=== PATIENT | female | born 1970 | race Caucasian/White ===

== ENCOUNTER 2016-08-20 12:20 | Emergency (ER) | payer OTHER ==
--- NOTE | 2016-08-20 14:45 | ED ORDER SUMMARY ---
..... Patient: MICAH QUINN OrderSheet [facility] VisitID: [id number] [address] [place] [address] 46y, F Registration Date/Time: 08/20/2016 ORDER SHEET Weight: 190.5 kg Allergies: None GENERAL ORDERS: US Venous Left Urgent (13:39 08/20/2016 EKoroleva P.A.-C) (Ack 13:41 MATEOoeremily) (14:39 DMaziarka R.N.) CBC w Diff Urgent (13:39 08/20/2016 EKoroleva P.A.-C) (Ack 13:41 MATEOoekemal) (13:48 MATEOoeremily) POC Glucose (14:39 08/20/2016 EKoroleva P.A.-C) (14:39 DMaziarka R.N.) MEDICATION ORDERS: Keflex PO 500 mg (NOW) (14:38 08/20/2016 EKoroleva P.A.-C) (Ack 14:39 DMaziarka R.N.) (14:44 DMaziarka R.N.) IV FLUIDS: ORDER SHEET NOTES: [Electronically signed by Skyla Mcgrath R.N. (14:49 08/20/2016)] [Electronically signed by Rhianna Woodruff P.A.-C (14:51 08/20/2016)] [Electronically locked/signed by Skyla Mcgrath R.N. (14:49 08/20/2016)]
--- NOTE | 2016-08-20 14:45 | ED CLINICAL REPORT ---
Clinical Report - Physicians/Mid Levels [facility] [address] [place] [address] 08/20/2016 12:22 Patient: MICAH QUINN Time Seen: 14:40 Aug 20 2016. Arrived- By private vehicle. Historian- patient. HISTORY OF PRESENT ILLNESS Chief Complaint: Injury to left leg and left knee. 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 Patient is experiencing mild pain. Patient denies injury to the head or neck. (Sutained a blow to knee about 5 days prior, has been ambulatory, seen at clinic with xr, and reported no signs of fx, not improving, not worsening. No h/o dvt. Denies sob. Denies any fevers/ chills. Has been elevating/ icing.). REVIEW OF SYSTEMS The patient complains of pain on weight bearing. All systems otherwise negative, except as recorded above. PAST HISTORY The patient has not had a prior injury to the same area. Tetanus immunization status is up-to-date. Problems: Hyperlipidemia. Diabetes Mellitus. Hypertension. Sciatica. Medications: Lisinopril Oral. Simvastatin Oral. MetFORMIN HCl Oral. Hydrochlorothiazide Oral. Allergies: None. SOCIAL HISTORY Never smoker. No alcohol use. ADDITIONAL NOTES The nursing notes have been reviewed. PHYSICAL EXAM Vital Signs: 08/20/2016 13:16 BP: 162/95. HR: 106. RR: 24. O2 saturation: 99%. Temp: 98.5 F. Appearance: Alert. No acute distress. Head: Head atraumatic. ENT: Ears normal. Neck: Normal inspection. CVS: Normal heart rate and rhythm. Respiratory: No respiratory distress. Breath sounds normal. No decreased air movement or chest wall injury. Abdomen: Obese. Skin: Skin warm. Normal skin color. (distal small pink warmth/ erythema, no abrasions, no signs of mass.). Extremities: Left thigh. No tenderness or swelling. Left knee: mild tenderness located in the distal femur. No ecchymosis or puncture wound. Left leg: mild tenderness and swelling and medium sized ecchymosis located in the anterior aspect of upper leg. Neurovascular intact distally. No limitation of weight bearing. Left ankle. (full passive rom). Left foot. (good sensation and distal pulse). Neuro, Vascular and Tendons: Vascular status intact. Motor intact. PROGRESS AND PROCEDURES Course of Care: Records reviewed, neg tib/fib from [facility] neg for dvt, signs of large hematoma. Pt with no pain out of proportion, with no signs of pain with passive rom, and no concern at this time for acute compartment syndrome. Distal pink erythema/ warmth, and given pt dm will tx for cellulitis. No new injury, and pt ambulatory. Stable POC glucose 76. 08/20/2016 14:45 BP: 138/84. HR: 88. RR: 24. O2 saturation: 98%. Patient is stable. Symptoms better. Patient/family counseled. Disposition: Discharged. CLINICAL IMPRESSION Contusion to the left knee and left lower leg. Hematoma to the left lower leg. Type 2 diabetes. Essential hypertension. INSTRUCTIONS Apply ice. Elevate affected areas above chest level. No strenuous activity. You may walk and bear weight as tolerated. (Elevate ICE ICE ICE Close follow up with your DR in 4-5 days). Prescription Medications: Cephalexin 500 mg: take 1 capsule orally every 8 hours for 10 days. No refill. Motrin 800 mg tablets: take 1 tablet orally every 8 hours for 5 days, as needed for pain. Dispense ten (10). No refill. Substitution is permissible. (Electronically signed by Rhianna Woodruff P.A.-C 08/20/2016 14:51)
--- NOTE | 2016-08-20 14:45 | ED NURSING NOTES ---
Clinical Report - Nurses [facility] [address] [place] [address] 08/20/2016 12:22 Patient: MICAH QUINN TRIAGE Triage time 13:16. Acuity: LEVEL 4. Chief Complaint: INJURY TO THE LEFT LEG. Alert. No acute distress. --13:20 Skyla Mcgrath R.N. 13:16 08/20/16. BP: 162/95. HR: 106. RR: 24. O2 saturation: 99%. Temp: 98.5 F. Pain level now 12/27. --13:20 Skyla Mcgrath R.N. Weight: 190.5 kg. Height/Length: 67 inches Measured. BMI: 65.8. --13:18 Skyla Mcgrath R.N. Medications Hydrochlorothiazide Oral. --13:18 Skyla Mcgrath R.N. MetFORMIN HCl Oral. --13:18 Skyla Mcgrath R.N. Simvastatin Oral. --13:19 Skyla Mgcrath R.N. Lisinopril Oral. --13:19 Skyla Mcgrath R.N. Allergies None. --13:19 Skyla Mcgrath R.N. History Arrived by private vehicle, and accompanied by friend. Primary physician (none). Treatment BRANCH CHIEF: (RICE). PAST MEDICAL HX: Tetanus status: up-to-date. SOCIAL HX: Never smoker. No alcohol use or drug use. --13:20 Skyla Mcgrath R.N. ( Pt was seen last week by the clinic and no fracture identified. Did not do a follow up just came here as she isn't better). --13:22 Skyla Mcgrath R.N. PROBLEMS: Hyperlipidemia. Diabetes Mellitus. Hypertension. Sciatica. --13:20 Skyla Mcgrath R.N. PHYSICAL ASSESSMENT Ambulatory to room. GENERAL / NEURO / PSYCH: Oriented X 4. Alert. Appears in no acute distress. EXTREMITIES: Left leg: tenderness and ecchymosis. SKIN: Skin is warm and dry. --13:21 Skyal Mcgrath R.N. NURSING PROGRESS NOTES Two patient identifiers checked. --13:21 Skyla Mcgrath R.N. 14:44 08/20/2016 Keflex (Cephalexin) PO 500 mg given. Allergies verified and confirmed 5 rights. --14:44 Skyla Mcgrath R.N. DISPOSITION / DISCHARGE Departure time: 14:48. Condition at departure: unchanged. No learning barriers present. Discharge instructions provided and reviewed with the patient. Patient verbalized understanding. Written instructions provided in Estonian. The patient was discharged home. She left the Emergency Department ambulatory and via private vehicle. Patient driving. --14:48 Skyla Mcgrath R.N. 14:45 08/20/16. BP: 138/84. HR: 88. RR: 24. O2 saturation: 98%. Pain level now 4/10. --14:48 Skyla Mcgrath R.N. Locked/Released at 08/20/2016 14:49 by Skyla Mcgrath R.N.
--- NOTE | 2016-08-20 14:45 | ED ORDER SUMMARY ---
..... Patient: MICAH QUINN OrderSheet [facility] VisitID: [id number] [address] [place] [address] 46y, F Registration Date/Time: 08/20/2016 ORDER SHEET Weight: 190.5 kg Allergies: None GENERAL ORDERS: US Venous Left Urgent (13:39 08/20/2016 EKoroleva P.A.-C) (Ack 13:41 MATEOoeremily) (14:39 DMaziarka R.N.) CBC w Diff Urgent (13:39 08/20/2016 EKoroleva P.A.-C) (Ack 13:41 MATEOoekemal) (13:48 MATEOoeremily) POC Glucose (14:39 08/20/2016 EKoroleva P.A.-C) (14:39 DMaziarka R.N.) MEDICATION ORDERS: Keflex PO 500 mg (NOW) (14:38 08/20/2016 EKoroleva P.A.-C) (Ack 14:39 DMaziarka R.N.) (14:44 DMaziarka R.N.) IV FLUIDS: ORDER SHEET NOTES: [Electronically signed by Skyla Mcgrath R.N. (14:49 08/20/2016)] [Electronically signed by Rhianna Woodruff P.A.-C (14:51 08/20/2016)] [Electronically locked/signed by Skyla Mcgrath R.N. (14:49 08/20/2016)]
--- NOTE | 2016-08-20 14:45 | ED CLINICAL REPORT ---
Clinical Report - Physicians/Mid Levels Located [facility] [address] [place] [address] 08/20/2016 12:22 Patient: MICAH QUINN Time Seen: 14:40 Aug 20 2016. Arrived- By private vehicle. Historian- patient. HISTORY OF PRESENT ILLNESS Chief Complaint: Injury to left leg and left knee. 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 Patient is experiencing mild pain. Patient denies injury to the head or neck. (Sutained a blow to knee about 5 days prior, has been ambulatory, seen at clinic with xr, and reported no signs of fx, not improving, not worsening. No h/o dvt. Denies sob. Denies any fevers/ chills. Has been elevating/ icing.). REVIEW OF SYSTEMS The patient complains of pain on weight bearing. All systems otherwise negative, except as recorded above. PAST HISTORY The patient has not had a prior injury to the same area. Tetanus immunization status is up-to-date. Problems: Hyperlipidemia. Diabetes Mellitus. Hypertension. Sciatica. Medications: Lisinopril Oral. Simvastatin Oral. MetFORMIN HCl Oral. Hydrochlorothiazide Oral. Allergies: None. SOCIAL HISTORY Never smoker. No alcohol use. ADDITIONAL NOTES The nursing notes have been reviewed. PHYSICAL EXAM Vital Signs: 08/20/2016 13:16 BP: 162/95. HR: 106. RR: 24. O2 saturation: 99%. Temp: 98.5 F. Appearance: Alert. No acute distress. Head: Head atraumatic. ENT: Ears normal. Neck: Normal inspection. CVS: Normal heart rate and rhythm. Respiratory: No respiratory distress. Breath sounds normal. No decreased air movement or chest wall injury. Abdomen: Obese. Skin: Skin warm. Normal skin color. (distal small pink warmth/ erythema, no abrasions, no signs of mass.). Extremities: Left thigh. No tenderness or swelling. Left knee: mild tenderness located in the distal femur. No ecchymosis or puncture wound. Left leg: mild tenderness and swelling and medium sized ecchymosis located in the anterior aspect of upper leg. Neurovascular intact distally. No limitation of weight bearing. Left ankle. (full passive rom). Left foot. (good sensation and distal pulse). Neuro, Vascular and Tendons: Vascular status intact. Motor intact. PROGRESS AND PROCEDURES Course of Care: Records reviewed, neg tib/fib from [facility] neg for dvt, signs of large hematoma. Pt with no pain out of proportion, with no signs of pain with passive rom, and no concern at this time for acute compartment syndrome. Distal pink erythema/ warmth, and given pt dm will tx for cellulitis. No new injury, and pt ambulatory. Stable POC glucose 76. 08/20/2016 14:45 BP: 138/84. HR: 88. RR: 24. O2 saturation: 98%. Patient is stable. Symptoms better. Patient/family counseled. Disposition: Discharged. CLINICAL IMPRESSION Contusion to the left knee and left lower leg. Hematoma to the left lower leg. Type 2 diabetes. Essential hypertension. INSTRUCTIONS Apply ice. Elevate affected areas above chest level. No strenuous activity. You may walk and bear weight as tolerated. (Elevate ICE ICE ICE Close follow up with your DR in 4-5 days). Prescription Medications: Cephalexin 500 mg: take 1 capsule orally every 8 hours for 10 days. No refill. Motrin 800 mg tablets: take 1 tablet orally every 8 hours for 5 days, as needed for pain. Dispense ten (10). No refill. Substitution is permissible. (Electronically signed by Rhianna Woodruff P.A.-C 08/20/2016 14:51)
--- NOTE | 2016-08-20 14:45 | ED NURSING NOTES ---
Clinical Report - Nurses [facility] [address] [place] [address] 08/20/2016 12:22 Patient: MICAH QUINN TRIAGE Triage time 13:16. Acuity: LEVEL 4. Chief Complaint: INJURY TO THE LEFT LEG. Alert. No acute distress. --13:20 Skyla Mcgrath R.N. 13:16 08/20/16. BP: 162/95. HR: 106. RR: 24. O2 saturation: 99%. Temp: 98.5 F. Pain level now 12/27. --13:20 Skyla Mcgrath R.N. Weight: 190.5 kg. Height/Length: 67 inches Measured. BMI: 65.8. --13:18 Skyla Mcgrath R.N. Medications Hydrochlorothiazide Oral. --13:18 Skyla Mcgrath R.N. MetFORMIN HCl Oral. --13:18 Skyla Mcgrath R.N. Simvastatin Oral. --13:19 Skyla Mcgrath R.N. Lisinopril Oral. --13:19 Skyla Mcgrath R.N. Allergies None. --13:19 Skyla Mcgrath R.N. History Arrived by private vehicle, and accompanied by friend. Primary physician (none). Treatment AIR DEFENSE ARTILLERY OFFICER: (RICE). PAST MEDICAL HX: Tetanus status: up-to-date. SOCIAL HX: Never smoker. No alcohol use or drug use. --13:20 Skyla Mcgrath R.N. ( Pt was seen last week by the clinic and no fracture identified. Did not do a follow up just came here as she isn't better). --13:22 Skyla Mcgrath R.N. PROBLEMS: Hyperlipidemia. Diabetes Mellitus. Hypertension. Sciatica. --13:20 Skyla Mcgrath R.N. PHYSICAL ASSESSMENT Ambulatory to room. GENERAL / NEURO / PSYCH: Oriented X 4. Alert. Appears in no acute distress. EXTREMITIES: Left leg: tenderness and ecchymosis. SKIN: Skin is warm and dry. --13:21 kSyla Mcgrath R.N. NURSING PROGRESS NOTES Two patient identifiers checked. --13:21 Skyla Mcgrath R.N. 14:44 08/20/2016 Keflex (Cephalexin) PO 500 mg given. Allergies verified and confirmed 5 rights. --14:44 Skyla Mcgrath R.N. DISPOSITION / DISCHARGE Departure time: 14:48. Condition at departure: unchanged. No learning barriers present. Discharge instructions provided and reviewed with the patient. Patient verbalized understanding. Written instructions provided in Yi. The patient was discharged home. She left the Emergency Department ambulatory and via private vehicle. Patient driving. --14:48 Skyla Mcgrath R.N. 14:45 08/20/16. BP: 138/84. HR: 88. RR: 24. O2 saturation: 98%. Pain level now 4/10. --14:48 Skyla Mcgrath R.N. Locked/Released at 08/20/2016 14:49 by Skyla Mcgrath R.N.
--- NOTE | 2016-08-20 14:51 | ED MED RECONCILIATION SUMMARY ---
Patient: MICAH QUINN Medication Reconciliation Report [facility] VisitID: [id number] [address] [place] [address] 46y, F Registration Date/Time: 08/20/2016 Weight: 190.5 kg Height/Length: 67 in. BMI: 65.8 ALLERGIES: None The patient's Home Medications are listed below: THE FOLLOWING MEDICATIONS NEED TO BE RECONCILED: Hydrochlorothiazide Oral Lisinopril Oral MetFORMIN HCl Oral Simvastatin Oral The source(s) of the original Home Medication information: Not obtained. The following Medications were given to the patient in the Emergency Department: Keflex [PO] PO 500 mg, administered: 08/20/2016 2:44:00 PM The following Medications were prescribed to the patient: Cephalexin 500 mg: take 1 capsule orally every 8 hours for 10 days. No refill. -- Rhianna Woodruff, P.A.-Michi Motrin 800 mg tablets: take 1 tablet orally every 8 hours for 5 days, as needed for pain. Dispense ten (10). No refill. Substitution is permissible. -- Rhianna Woodruff, P.A.-C
--- NOTE | 2016-08-20 14:51 | DIAGNOSTIC IMAGING REPORT ---
PROCEDURE: US VENOUS - LEFT EXT INDICATION: SWELLING TECHNIQUE: Duplex sonography of the deep venous system in the left lower extremity was performed. Compression and augmentation techniques were used. COMPARISON: None. FINDINGS: Each interrogated segment of deep vein from the common femoral vein into the calf veins demonstrates normal compressibility, augmentation and/or color Doppler flow without filling defect. The deep subcutaneous tissues in the area of bruise, there is an ill-defined, irregular fluid collection measuring 3.6 x 4.0 x 0.9 cm. No vascularity to or within this region. IMPRESSION: 1. No deep venous thrombosis in the left lower extremity. 2. Findings suggestive of deep anterior soft tissue hematoma.
--- NOTE | 2016-08-20 14:51 | ED MAR SUMMARY ---
..... Medication Administration Record [facility] [address] [place] [address] Patient: MICAH QUINN Visit ID: [id number] 46y, F Weight: 190.5 kg Height/Length: 67 in BMI: 65.8 ALLERGIES: None Given 14:44 08/20/2016 Skyla Mcgrath R.N. Medication Administered: KEFLEX [PO] (CEPHALEXIN), Dose: 500 mg PO. Medication Ordered: Keflex PO 500 mg (NOW).
--- NOTE | 2016-08-20 14:51 | ED MAR SUMMARY ---
..... Medication Administration Record [facility] [address] [place] [address] Patient: MICAH QUINN Visit ID: [id number] 46y, F Weight: 190.5 kg Height/Length: 67 in BMI: 65.8 ALLERGIES: None Given 14:44 08/20/2016 Skyla Mcgrath R.N. Medication Administered: KEFLEX [PO] (CEPHALEXIN), Dose: 500 mg PO. Medication Ordered: Keflex PO 500 mg (NOW).
--- NOTE | 2016-08-20 14:51 | ED DISCHARGE INSTRUCTIONS ---
Patient: MICAH QUINN General Instructions [facility] VisitID: [id number] [place] [address] 46y, F Registration Date/Time: 08/20/2016 Contusion to the left knee and left lower leg. Hematoma to the left lower leg. Type 2 diabetes. Essential hypertension. INSTRUCTIONS Apply ice. Elevate affected areas above chest level. No strenuous activity. You may walk and bear weight as tolerated. (Elevate ICE ICE ICE Close follow up with your DR in 4-5 days). Prescription Medications: Cephalexin 500 mg: take 1 capsule orally every 8 hours for 10 days. No refill. Motrin 800 mg tablets: take 1 tablet orally every 8 hours for 5 days, as needed for pain. Dispense ten (10). No refill. Substitution is permissible. ADDITIONAL INFORMATION Hematoma A hematoma is caused by an injury with damage to small blood vessels. This causes blood to leak into the tissues. Blood forms a pocket under the skin that swells and looks like a purplish patch. Gradually the blood in the hematoma is absorbed back into the body. The swelling and pain of the hematoma will go away. This takes from one to four weeks, depending on the size of the hematoma. The skin over the hematoma may turn bluish then brown and yellow as the blood is dissolved and absorbed. Home Care: Limit motion of the joints near the hematoma. If the hematoma is large and painful, you should avoid sports and other vigorous physical activity until the swelling and pain goes away. Apply an ice pack (ice cubes in a plastic bag, wrapped in a towel) over the injured area for 20 minutes every 1-2 hours the first day. You should continue with ice packs 3-4 times a day for the next two days. Continue the use of ice packs for relief of pain and swelling as needed. You may use acetaminophen (Tylenol) or ibuprofen (Motrin, Advil) to control pain, unless another pain medicine was prescribed. [ NOTE : If you have chronic liver or kidney disease or ever had a stomach ulcer or GI bleeding, talk with your doctor before using these medicines.] Follow Up with your doctor or as advised by our staff. [ NOTE: A radiologist will review any X-rays that were taken. We will notify you of any new findings that may affect your care.] Get Prompt Medical Attention if any of the following occur: Redness around the hematoma Increase in pain or warmth in the hematoma Increase in size of the hematoma Fever of 100.4F (38C) or higher, or as directed by your healthcare provider If the hematoma is on the arm or leg, watch for: Increased swelling or pain in the extremity Numbness or tingling or blue color of the hand or foot Contusion,Soft Tissue You have a CONTUSION, which is a bruise with swelling and some bleeding under the skin. There are no broken bones. This injury takes a few days to a few weeks to heal. Home Care: 1) Keep the injured part elevated to reduce pain and swelling. This is especially important during the first 48 hours. 2) Make an ice pack (ice cubes in a plastic bag, wrapped in a towel) and apply for 20 minutes every 1-2 hours the first day. Continue this 3-4 times a day until the pain and swelling goes away. 3) You may use acetaminophen (Tylenol) or ibuprofen (Motrin, Advil) to control pain, unless another pain medicine was prescribed. [ NOTE : If you have chronic liver or kidney disease or ever had a stomach ulcer or GI bleeding, talk with your doctor before using these medicines.] Follow Up with your doctor or this facility if you are not improving within the next THREE days. [NOTE: If X-rays were taken, they will be reviewed by a radiologist. You will be notified of any new findings that may affect your care.] Get Prompt Medical Attention if any of the following occur: -- Pain or swelling increases -- Injured arm or leg becomes cold, blue, numb or tingly -- Redness, warmth or drainage from the skin Cephalexin Monohydrate Oral tablet What is this medicine? CEPHALEXIN (sef a ROHIT in) is a cephalosporin antibiotic. It is used to treat certain kinds of bacterial infections It will not work for colds, flu, or other viral infections. How should I use this medicine? Take this medicine by mouth with a full glass of water. Follow the directions on the prescription label. This medicine can be taken with or without food. Take your medicine at regular intervals. Do not take your medicine more often than directed. Take all of your medicine as directed even if you think you are better. Do not skip doses or stop your medicine early. Talk to your architectural administrative assistant regarding the use of this medicine in children. While this drug may be prescribed for selected conditions, precautions do apply. What side effects may I notice from receiving this medicine? Side effects that you should report to your doctor or health after school caregiver as soon as possible: allergic reactions like skin rash, itching or hives, swelling of the face, lips, or tongue breathing problems pain or trouble passing urine redness, blistering, peeling or loosening of the skin, including inside the mouth severe or watery diarrhea unusually weak or tired yellowing of the eyes, skin Side effects that usually do not require medical attention (report to your doctor or health after school caregiver if they continue or are bothersome): gas or heartburn genital or anal irritation headache joint or muscle pain nausea, vomiting What may interact with this medicine? probenecid some other antibiotics What if I miss a dose? If you miss a dose, take it as soon as you can. If it is almost time for your next dose, take only that dose. Do not take double or extra doses. There should be at least 4 to 6 hours between doses. Where should I keep my medicine? Keep out of the reach of children. Store at room temperature between 59 and 86 degrees F (15 and 30 degrees C). Throw away any unused medicine after the expiration date. What should I tell my health care provider before I take this medicine? They need to know if you have any of these conditions: kidney disease stomach or intestine problems, especially colitis an unusual or allergic reaction to cephalexin, other cephalosporins, penicillins, other antibiotics, medicines, foods, dyes or preservatives or trying to get breast-feeding What should I watch for while using this medicine? Tell your doctor or health after school caregiver if your symptoms do not begin to improve in a few days. Do not treat diarrhea with over the counter products. Contact your doctor if you have diarrhea that lasts more than 2 days or if it is severe and watery. If you have diabetes, you may get a false-positive result for sugar in your urine. Check with your doctor or health after school caregiver. You have been given the following additional information: Hematoma Contusion, Soft Tissue Cephalexin Monohydrate Oral tablet No strenuous activity. You may walk and bear weight as tolerated. (Electronically signed by Rhianna Woodruff P.A.-C 08/20/2016 14:51)
--- NOTE | 2016-08-20 14:51 | ED MED RECONCILIATION SUMMARY ---
Patient: MICAH QUINN Medication Reconciliation Report [facility] VisitID: [id number] [address] [place] [address] 46y, F Registration Date/Time: 08/20/2016 Weight: 190.5 kg Height/Length: 67 in. BMI: 65.8 ALLERGIES: None The patient's Home Medications are listed below: THE FOLLOWING MEDICATIONS NEED TO BE RECONCILED: Hydrochlorothiazide Oral Lisinopril Oral MetFORMIN HCl Oral Simvastatin Oral The source(s) of the original Home Medication information: Not obtained. The following Medications were given to the patient in the Emergency Department: Keflex [PO] PO 500 mg, administered: 08/20/2016 2:44:00 PM The following Medications were prescribed to the patient: Cephalexin 500 mg: take 1 capsule orally every 8 hours for 10 days. No refill. -- Rhianna Woodruff, P.A.-Michi Motrin 800 mg tablets: take 1 tablet orally every 8 hours for 5 days, as needed for pain. Dispense ten (10). No refill. Substitution is permissible. -- Rhianna Woodruff, P.A.-C
--- NOTE | 2016-08-20 14:51 | ED DISCHARGE INSTRUCTIONS ---
Patient: MICAH QUINN General Instructions [facility] VisitID: [id number] [place] [address] 46y, F Registration Date/Time: 08/20/2016 Contusion to the left knee and left lower leg. Hematoma to the left lower leg. Type 2 diabetes. Essential hypertension. INSTRUCTIONS Apply ice. Elevate affected areas above chest level. No strenuous activity. You may walk and bear weight as tolerated. (Elevate ICE ICE ICE Close follow up with your DR in 4-5 days). Prescription Medications: Cephalexin 500 mg: take 1 capsule orally every 8 hours for 10 days. No refill. Motrin 800 mg tablets: take 1 tablet orally every 8 hours for 5 days, as needed for pain. Dispense ten (10). No refill. Substitution is permissible. ADDITIONAL INFORMATION Hematoma A hematoma is caused by an injury with damage to small blood vessels. This causes blood to leak into the tissues. Blood forms a pocket under the skin that swells and looks like a purplish patch. Gradually the blood in the hematoma is absorbed back into the body. The swelling and pain of the hematoma will go away. This takes from one to four weeks, depending on the size of the hematoma. The skin over the hematoma may turn bluish then brown and yellow as the blood is dissolved and absorbed. Home Care: Limit motion of the joints near the hematoma. If the hematoma is large and painful, you should avoid sports and other vigorous physical activity until the swelling and pain goes away. Apply an ice pack (ice cubes in a plastic bag, wrapped in a towel) over the injured area for 20 minutes every 1-2 hours the first day. You should continue with ice packs 3-4 times a day for the next two days. Continue the use of ice packs for relief of pain and swelling as needed. You may use acetaminophen (Tylenol) or ibuprofen (Motrin, Advil) to control pain, unless another pain medicine was prescribed. [ NOTE : If you have chronic liver or kidney disease or ever had a stomach ulcer or GI bleeding, talk with your doctor before using these medicines.] Follow Up with your doctor or as advised by our staff. [ NOTE: A radiologist will review any X-rays that were taken. We will notify you of any new findings that may affect your care.] Get Prompt Medical Attention if any of the following occur: Redness around the hematoma Increase in pain or warmth in the hematoma Increase in size of the hematoma Fever of 100.4F (38C) or higher, or as directed by your healthcare provider If the hematoma is on the arm or leg, watch for: Increased swelling or pain in the extremity Numbness or tingling or blue color of the hand or foot Contusion,Soft Tissue You have a CONTUSION, which is a bruise with swelling and some bleeding under the skin. There are no broken bones. This injury takes a few days to a few weeks to heal. Home Care: 1) Keep the injured part elevated to reduce pain and swelling. This is especially important during the first 48 hours. 2) Make an ice pack (ice cubes in a plastic bag, wrapped in a towel) and apply for 20 minutes every 1-2 hours the first day. Continue this 3-4 times a day until the pain and swelling goes away. 3) You may use acetaminophen (Tylenol) or ibuprofen (Motrin, Advil) to control pain, unless another pain medicine was prescribed. [ NOTE : If you have chronic liver or kidney disease or ever had a stomach ulcer or GI bleeding, talk with your doctor before using these medicines.] Follow Up with your doctor or this facility if you are not improving within the next THREE days. [NOTE: If X-rays were taken, they will be reviewed by a radiologist. You will be notified of any new findings that may affect your care.] Get Prompt Medical Attention if any of the following occur: -- Pain or swelling increases -- Injured arm or leg becomes cold, blue, numb or tingly -- Redness, warmth or drainage from the skin Cephalexin Monohydrate Oral tablet What is this medicine? CEPHALEXIN (sef a ROHIT in) is a cephalosporin antibiotic. It is used to treat certain kinds of bacterial infections It will not work for colds, flu, or other viral infections. How should I use this medicine? Take this medicine by mouth with a full glass of water. Follow the directions on the prescription label. This medicine can be taken with or without food. Take your medicine at regular intervals. Do not take your medicine more often than directed. Take all of your medicine as directed even if you think you are better. Do not skip doses or stop your medicine early. Talk to your student services vice president regarding the use of this medicine in children. While this drug may be prescribed for selected conditions, precautions do apply. What side effects may I notice from receiving this medicine? Side effects that you should report to your doctor or health healthcare project manager as soon as possible: allergic reactions like skin rash, itching or hives, swelling of the face, lips, or tongue breathing problems pain or trouble passing urine redness, blistering, peeling or loosening of the skin, including inside the mouth severe or watery diarrhea unusually weak or tired yellowing of the eyes, skin Side effects that usually do not require medical attention (report to your doctor or health healthcare project manager if they continue or are bothersome): gas or heartburn genital or anal irritation headache joint or muscle pain nausea, vomiting What may interact with this medicine? probenecid some other antibiotics What if I miss a dose? If you miss a dose, take it as soon as you can. If it is almost time for your next dose, take only that dose. Do not take double or extra doses. There should be at least 4 to 6 hours between doses. Where should I keep my medicine? Keep out of the reach of children. Store at room temperature between 59 and 86 degrees F (15 and 30 degrees C). Throw away any unused medicine after the expiration date. What should I tell my health care provider before I take this medicine? They need to know if you have any of these conditions: kidney disease stomach or intestine problems, especially colitis an unusual or allergic reaction to cephalexin, other cephalosporins, penicillins, other antibiotics, medicines, foods, dyes or preservatives or trying to get breast-feeding What should I watch for while using this medicine? Tell your doctor or health healthcare project manager if your symptoms do not begin to improve in a few days. Do not treat diarrhea with over the counter products. Contact your doctor if you have diarrhea that lasts more than 2 days or if it is severe and watery. If you have diabetes, you may get a false-positive result for sugar in your urine. Check with your doctor or health healthcare project manager. You have been given the following additional information: Hematoma Contusion, Soft Tissue Cephalexin Monohydrate Oral tablet No strenuous activity. You may walk and bear weight as tolerated. (Electronically signed by Rhianna Woodruff P.A.-C 08/20/2016 14:51)
== END 2016-08-20 14:48 | disposition home or self-care (01) ==
LOC: ED SRH 12:20
DX: S80.02XA Contusion of left knee, initial encounter (principal); E11.9 Type 2 diabetes mellitus without complications; I10 Essential (primary) hypertension; X58.XXXD Exposure to other specified factors, subsequent encounter; Y93.9 Activity, unspecified; Y92.009 Unspecified place in unspecified non-institutional (private) residence as the place of occurrence of the external cause; Y99.9 Unspecified external cause status; Z79.899 Other long term (current) drug therapy; Z79.84 Long term (current) use of oral hypoglycemic drugs